=== PATIENT | male | born 1955 | race Caucasian/White ===

== ENCOUNTER → 2018-03-02 | Outpatient (CLI) | payer MEDICARE ==
--- NOTE | 2018-03-02 10:15 | MR ---
EXAMINATION TYPE: MR knee LT wo con DATE OF EXAM: 03/02/2018 COMPARISON: X-ray 02/06/2018 HISTORY: Pain in left knee TECHNIQUE: Multiplanar, multisequence imaging of the left knee is performed without IV contrast. FINDINGS: MEDIAL MENISCUS: No diagnostic evidence of tear. Intrasubstance signal suggestive of myxoid degenerat ion. LATERAL MENISCUS: There is globular signal posterior horn the lateral meniscus, however, along the pe riphery there does appear to be articular extension suggestive of a complex tear. CRUCIATE LIGAMENTS: The anterior and posterior cruciate ligaments are intact and unremarkable. COLLATERAL LIGAMENTS: There is fluid surrounding the lateral collateral ligament suggestive of a spra in. Soft tissue edema noted adjacent. Medial collateral ligament intact. EXTENSOR MECHANISM: Visualized quadriceps and patellar tendons are intact. Fibrillation and grade II chondromalacia of the patellar cartilage. EFFUSION: No significant suprapatellar joint effusion. POPLITEAL CYST: No popliteal/adhikari cyst. TRICOMPARTMENT SPACES: There is narrowing of the medial compartment of the knee joint compatible with mild osteoarthritis. BONE MARROW SIGNAL: No focal abnormal marrow signal is appreciated. IMPRESSION: 1. Complex tear involving the lateral meniscus with evidence of LCL sprain but no through thickness t ear. 2. Mild osteoarthritis 3. Fibrillation and grade II chondromalacia patellar cartilage.
== END | disposition home or self-care (01) ==
LOC: RADMRIMAIN 09:26
PROVIDERS: ATTEND Orthopaedic Surgery
DX: S83.272A Complex tear of lateral meniscus, current injury, left knee, initial encounter (principal); S83.422A Sprain of lateral collateral ligament of left knee, initial encounter; M17.12 Unilateral primary osteoarthritis, left knee; M22.42 Chondromalacia patellae, left knee

== ENCOUNTER → 2022-04-01 | Outpatient (CLI) | payer MEDICARE ==
[2022-04-01 11:36] LABS: INR 0.9 (<1.2); Partial Thromboplastin Time 27.1 sec (22.0-30.0); Prothrombin Time 10.3 sec (9.0-12.0)
--- NOTE | 2022-04-01 12:34 | XR ---
EXAMINATION TYPE: XR chest 2V DATE OF EXAM: 04/01/2022 COMPARISON: 12/29/2013 INDICATION: Presurgical clearance TECHNIQUE: Frontal and lateral views of the chest are obtained. FINDINGS: The heart size is normal. The pulmonary vasculature is normal. The lungs are clear. IMPRESSION: 1. No acute pulmonary process.
[2022-04-01 17:47] LABS: Basophils # (A) 0.07 X 10*3/uL (0.00-0.10); Eosinophils # (A) 0.29 X 10*3/uL (0.04-0.35); Eosinophils % (A) 4.1 %; HGB 13.7 g/dL (13.0-17.0); Immature Grans, Automated 0.3 %; Lymphocytes # (A) 2.13 X 10*3/uL (0.90-5.00); Lymphocytes % (A) 30.2 %; MCH 30.6 pg (27.0-32.0); MCHC 32.6 g/dL (32.0-37.0); MCV 93.8 fL (80.0-97.0); Mean Platelet Volume 10.7 fL (9.5-12.2); Monocytes # (A) 0.66 X 10*3/uL (0.20-1.00); Monocytes % (A) 9.3 %; NRBC Per 100 WBC 0 /100 WBCS (0.0-0.0); Neutrophils # (A) 3.89 X 10*3/uL (1.80-7.70); Neutrophils % (A) 55.1 %; Platelet Count 325 X 10*3/uL (140-440); RBC 4.48 X 10*6/uL (4.40-5.60); RDW 12.9 % (11.5-14.5); WBC 7.06 X 10*3/uL (4.50-10.00)
[2022-04-01 17:51] LABS: African American GFR (CKD) 91.1 (60.0-200.0); Albumin 4.6 g/dL (3.8-4.9); Albumin/Globulin Ratio 1.7 (1.60-3.17); Anion Gap 11.1 mmol/L (10.00-18.00); BUN/Creat Ratio 13.7 Ratio (12.00-20.00); Blood Urea Nitrogen 13.7 mg/dL (9.0-27.0); Calcium 10.1 mg/dL (8.7-10.3); Carbon Dioxide 26.9 mmol/L (20.0-27.5); Globulin 2.7 g/dL (1.6-3.3); Non-African American GFR(CKD) 78.6 (60.0-200.0); Potassium 4.6 mmol/L (3.5-5.5); Total Bilirubin 0.2 mg/dL (0.30-1.20); Total Protein 7.3 g/dL (6.2-8.2)
[2022-04-01 17:54] LABS: Appearance,Urine Clear (Clear); Bilirubin,Urine Negative (Negative); Blood,Urine Negative (Negative); Color,Urine Yellow (Yellow); Ketones,Urine Negative (Negative); Nitrite,Urine Negative (Negative); Specific Gravity,Urine 1.021 (1.001-1.030)
== END | disposition home or self-care (01) ==
LOC: LABPAT 10:54
PROVIDERS: ATTEND Orthopaedic Surgery Orthopaedic Surgery of the Spine
DX: Z01.818 Encounter for other preprocedural examination (principal); M48.00 Spinal stenosis, site unspecified; K43.6 Other and unspecified ventral hernia with obstruction, without gangrene
CPT/HCPCS: 71046; 80053; 81003; 85025; 85610; 85730; 87070

== ENCOUNTER 2022-04-06 12:43 | Observation (INO) | payer MEDICARE ==
[~2022-04-06 12:43] MED LIST: DEXAMETHASONE SOD PHOSPHATE 4 MG/ML 1 ML VIAL IV ONE; LACTATED RINGERS 1,000 ML IV SCH; LIDOCAINE 1% (10MG/ML) FOR IV START INTRADERMA PRN; MIDAZOLAM 2 MG/2 ML VIAL IV PRN; ONDANSETRON 4 MG/2 ML VIAL IVP ONE; ceFAZolin 1,000 MG in SODIUM CHLORIDE 0.9% IRRIGATIO 1,000 ML IRRIGATION PRN
[2022-04-06] MEDS ORDERED: LACTATED RINGERS 1,000 ML IV ONE ×2 (13:04→17:00)
[2022-04-06] MEDS ORDERED: KETAMINE 10 MG/ML 20 ML VIAL ONE (14:33)
[2022-04-06] MEDS ORDERED: fentaNYL (PF) 50 MCG/ML 2 ML AMP ONE (14:33)
[2022-04-06] MEDS ORDERED: GLYCOPYRROLATE 0.2 MG/ML 2 ML VIAL ONE (14:33)
[2022-04-06] MEDS ORDERED: SUCCINYLCHOLINE CHLORIDE 200 MG/10 ML VIAL IV ONE (14:33)
[2022-04-06] MEDS ORDERED: LIDOCAINE 2% INJ 20 MG/ML (2 ML VIAL) ONE (14:33)
[2022-04-06] MEDS ORDERED: PROPOFOL 10 MG/ML 20 ML VIAL IV ONE (14:33)
[2022-04-06] MEDS ORDERED: NEOSTIGMINE 1 MG/ML 10 ML VIAL ONE (14:33)
[2022-04-06] MEDS ORDERED: MIDAZOLAM 2 MG/2 ML VIAL ONE (14:33)
[2022-04-06] MEDS ORDERED: ROCURONIUM 10 MG/ML (5 ML VIAL) IV ONE (14:33)
[2022-04-06] MEDS ORDERED: HYDROmorphone (PF) 1 MG/ML ONE (14:33)
[2022-04-06] MEDS ORDERED: LIDOCAINE 2%-EPI 1:100,000 20 ML VIAL SQ ONE (15:11)
[2022-04-06] MEDS ORDERED: BUPIVACAINE (PF) 0.25% 30 ML VIAL SQ ONE (15:11)
[2022-04-06] MEDS ORDERED: GELATIN SPONGE,ABSORB (LARGE) 1 EACH SPONGE TOPICAL ONE (15:15)
[2022-04-06] MEDS ORDERED: THROMBIN (BOVINE) 5,000 UNIT VIAL TOPICAL ONE (15:16)
[2022-04-06] MEDS ORDERED: BENZOCAINE/MENTHOL LOZENG 1 EACH LOZENGE MUCOUS MEM PRN (18:08)
[2022-04-06] MEDS ORDERED: HYDROmorphone 1 MG/ML 1 ML SYRINGE IVP PRN (18:08)
[2022-04-06] MEDS ORDERED: ONDANSETRON 4 MG/2 ML VIAL IVP PRN (18:08)
[2022-04-06] MEDS ORDERED: SENNOSIDES-DOCUSATE SODIUM 1 EACH TAB PO PRN (18:08)
[2022-04-06] MEDS ORDERED: CYCLOBENZAPRINE 10 MG TAB PO PRN (18:08)
--- NOTE | 2022-04-06 18:21 | P.OP ---
Date of Procedure: 04/06/22 Preoperative Diagnosis: Severe spinal stenosis L3 4, herniated nucleus pulposis L3 4, retrolisthesis L3 4, lower extremity radiculopathy, lower extremity weakness, adjacent level degeneration L3 4 with prior fusion L4 to S1, retained hardware L4-S1 Postoperative Diagnosis: Same with findings of solid fusion L4 5 L5-S1 Anesthesia: GETA Pathology: none sent Condition: stable Disposition: PACU Description of Procedure: BRIEF OPERATIVE NOTE Preoperative Diagnosis:Severe spinal stenosis L3 4, herniated nucleus pulposis L3 4, retrolisthesis L3 4, lower extremity radiculopathy, lower extremity weakness, adjacent level degeneration L3 4 with prior fusion L4 to S1, retained hardware L4-S1 Postoperative Diagnosis: Same with findings of solid fusion L4 5 L5-S1 Procedure: Removal of deep hardware L4 Exploration of fusion L4 5 L5-S1 the findings of solid fusion Laminectomy and decompression L3 4 Posterior lateral decompression and fusion L3 4 for extension of fusion from L4 to S1 Transforaminal lumbar interbody fusion for a 360 fusion L3 4 Discectomy for decompression L3 4 Placement of interbody graft L3 4 Local autogenous bone grafting Use of CT navigation system intraoperatively for placement of hardware at L3 Aspiration of bone marrow aspirate from L3 on the right Use of Cell Saver Use of bone graft extenders Use of neuro monitoring Surgeon: Dr. Martin Machinist Mechanic: Juancho Carroll is present throughout the entire the case persistence during positioning, dissection, exposure, visualization, and all crucial elements of the case as well as closure. Anesthesia: General anesthesia per Dr. Dr. Pitts Estimated blood loss: Approximately 300 mL Complications: None apparent Components implanted: K2M [place] pedicle screw system with use of 4 screws 2 of them measuring 6.5 mm diameter and 2 of them measuring 7.5 mm diameter with one florencia and one 7 mm [place] cage with bone graft substitute to supplemental local autogenous bone graft and bone marrow aspirate Disposition: To recovery room in good stable condition. OPERATIVE INDICATIONS The patient has been having severe issues in his back and his lower extremity is over the past 4 months. He had a history of lumbar issues almost 9 years ago and underwent prior surgery in the past with a compression and fusion L4 5 and L5-S1. He had done very well with this and was very happy with his result. He did well until approximately 4 months ago where he started having significant increase in pain and had an injury. He was having worsening problems at his low back despite aggressive conservative care with home exercise program anti- inflammatory medications therapy and relative rest. Patient was found have advanced disc degeneration at the adjacent level of L3 4 with new disc herniation at L3 4 causing severe stenosis which correlated well with his low back and lower extremity symptoms. Patient was not having any benefit despite aggressive conservative treatment. The patient has had severe issues in their lower back and lower extremities. The patient has been through conservative treatment. We discussed various treatment options including surgery, and the patient wishes to proceed with surgery We discussed the risk, patient's alternatives and benefits of surgery including but not limited to, risk of bleeding risk of infection, risk of need for further surgery, risk of decreased, loss of motion, muscle function, malunion nonunion, hardware failure, nerve damage, paralysis, heart attack, blindness and . OPERATIVE SUMMARY After discussing all the risks, patient alternatives and benefits at length, the patient elected to proceed with surgical intervention, signed informed consent, and presented for their procedure. The patient was seen and examined in the preoperative holding area and the surgical site was marked. The patient was given antibiotics and brought to the operating room. The patient was sedated and intubated by anesthesia in standard fashion. The patient was positioned on to the operating room table in a prone position on the appropriate frame which was well-padded and well molded. We were careful to pad any bony prominences and pressure points. We were careful to maintain the patient's cervical spine and good neutral alignment and position throughout. The patient was prepped and draped in a normal standard fashion. An appropriate timeout and keystone protocol performed. We were able to proceed with the surgery. The local wound area was infiltrated with local anesthetic. An incision was made at the midline longitudinally over the appropriate levels. Dissection was taken down subcutaneously to the level of the fascia which was split midline. Dissection was taken over the lamina bilaterally over the facet joints and to the transverse processes and L4. I was able to identify the hardware at L4-L5 and S1. Note was made of significant bony formation around the hardware at each of these levels. It was essentially encased in bone at L4- L5 and S1. Intraoperative x-ray was taken which showed a marker at the appropriate level. At L3 4 With the appropriate level established I then exposed some of the hardware in order to place a secure tracking guide for a CT-guided placement of the pedicle screws at L3. The tracking and was placed to the screw head at L4 it was checked and found to be secure. We draped appropriately and then brought in the eczema CT guidance system to do a full spin which gave us excellent imaging. We're able to [address] the screw holes with Jamshidi needle wires and screws at L3 bilaterally and excellent alignment and position with uses of CT navigation intraoperatively. There checked and found to have no evidence of stimulation at 30 mA. I felt that we can do well with removing just the L4 screws and cutting the rods bilaterally. This would save time on the procedure and saved blood loss as well as he would require significant dissection and bony removal to expose the screws at L5 and S1 for further removal. I chose to cut the rods just above L5 screw heads with a metal cutting bur. Using near constant irrigation and suction as able cut the rods bilaterally. With the appropriate level positively confirmed, we were able to proceed with placement of the pedicle holes and screws. The patient had all their twitches back. The wound was copiously irrigated and suctioned dry as had been done periodically throughout the case. After the rods were removed from L4 they were checked and found to be intact appropriate early. There is no evidence of any motion at L4 5 and no evidence of motion at L5-S1. As able to expose the screw heads fully at L4 and remove the screws bilaterally from L4 there checked and found to be in total. The meyer palpated and found have good for laguerre and a good base. I was able to use these holes to place the appropriate size screw and good alignment and good position with good bony purchase. I used a 7.5 mm screw with the same holes at L4 bilaterally. When the screws were inserted there were stimulated, and found to have no stimulation at 20 mA. I was able to turn my attention to the decompression decompression was performed with a combination of rongeurs, curettes, Kerrison rongeurs and a ball-tip feeler. I exposed further on the right side. All of the bone that was removed was stripped and morcellized for use as autogenous bone graft later in the case. I was able to obtain good central decompression as well as wide bilateral foraminal decompression. There is no evidence of dural tear or leak. Good hemostasis was maintained. The wound was irrigated and suctioned dry. I performed a complete facetectomy at the appropriate level on the most symptomatic side on the right where there was large disc herniation on the MRI. All bone that was removed was saved for local autogenous bone grafting. I was able to gain access to the disc space at the appropriate level/levels. Good hemostasis was maintained. I was able to protect the neurologic structures. Note was made a very large disc herniation at L3 4 with extruded fragments which was able to be remedied with the decompression and discectomy. A discectomy was performed. This provided further decompression. I was also able to perform complete discectomy and endplate preparation with a combination of pituitary curettes, rasps and scrapers. With the interbody space prepared, I was able to do appropriate sizing. The appropriate size cage was chosen. The wound was irrigated and suctioned dry. The interbody space was packed with local autogenous bone graft and a small portion of bone graft substitute, as was the cage itself. Protecting the soft tissue structures, I was able place the cage in good alignment and good position with good fit and fill. There is no evidence of extrusion of the graft material nor protrusion of the interbody device. The wound was irrigated and suctioned dry. With the hardware intact, intraoperative x-ray was again taken which showed good alignment and position of the hardware at the appropriate levels at L3 4 above the prior fusion at L45 and L5-S1. We were then able to measure, contour and place the rods and appropriate hardware bilaterally. I was able to place capcrews, tighten them down, and torque them off appropriately. With this intact I was able to place the local autogenous bone graft with additional bone graft enhancer as necessary into the posterior lateral gutters bilaterally. With the bone graft intact, a stable construct, and good decompression at the appropriate levels, we were able to proceed with closure. Good hemostasis was maintained. There is no evidence of dural tear or leak. The fascia was closed for a watertight closure. The subcutaneous tissue was closed over a superficial drain. The subcuticular tissue was closed with absorbable suture. The wound was cleaned and dried and dressed with the appropriate dressing. The drapes were broken down. The patient was gently rolled back onto their hospital bed being careful to maintain their cervical spine and good neutral alignment and position. They were woken up by anesthesia, extubated, and brought to the recovery room in good stable condition. The patient will be admitted to the hospital for appropriate postoperative care, medical management and monitoring. We will continue to follow them closely about the postoperative course.
[2022-04-06] MEDS ORDERED: LABETALOL SYRINGE 5 MG/ML IVP ONE (19:03)
[2022-04-06] MEDS: HYDROmorphone 0.5 MG/0.5 ML SYRINGE IVP PRN ×3 (19:20→23:49)
[2022-04-06] MEDS ORDERED: ONDANSETRON 4 MG/2 ML VIAL IVP ONE (19:50)
--- NOTE | 2022-04-06 20:21 | FL ---
Intraoperative/procedural fluoroscopic services were provided. Total fluoroscopy time is 19 seconds w ith a total of 2 submitted images to PACS. Please see the operative/procedural note for further detai ls.
[2022-04-07] MEDS: HYDROmorphone 0.5 MG/0.5 ML SYRINGE IVP PRN (05:59)
[2022-04-07] MEDS: SODIUM CHLORIDE 0.9% 1,000 ML IV SCH ×2 (06:00→08:42)
[2022-04-07] MEDS: HYDROcodone/APAP 5-325MG 1 EACH TAB PO PRN ×3 (09:00→21:32)
[2022-04-07] MEDS: lisinopriL 20 MG TAB PO SCH (09:01)
[2022-04-07] MEDS: SENNOSIDES-DOCUSATE SODIUM 1 EACH TAB PO SCH (09:02)
[2022-04-07] MEDS: CITALOPRAM HYDROBROMIDE 20 MG TAB PO SCH (09:03)
[2022-04-07] MEDS: ATORVASTATIN 10 MG TAB PO SCH (09:04)
[2022-04-07] MEDS: amLODIPine 5 MG TAB PO SCH (09:04)
--- NOTE | 2022-04-07 09:04 | P.PN ---
Progress Note - Text Progress Note Date: 04/07/22 Postoperative day #1 Patient is seen and examined today at bedside. The patient has some pain around the surgical site as expected. Pain is being controlled with medication.He says that the spastic pain and burning pain in his legs has significantly improved. He has been up and was able to void. He has had small amounts of food. He denies any nausea or vomiting. Physical Exam Afebrile with stable vital signs Abdomen is soft nontender. Chest has good excursion deep and space expiration The incision site is clean . There is some serosanguineous drainage at the dressing but appears to be stable. I removed the drain and there is no significant fluid collection. No erythema there is no purulence. Extremities have not had neurologic change from prior to surgery.He has sustained dorsal flexion plantar flexion and EHL intact Calves and thighs were soft nontender without evidence of DVT. Assessment/Plan Postoperative day #1 status post decompression fusion L3 4 with removal of hardware from L4 and extension of fusion for his severe spinal stenosis with disc herniation lower extremity radiculopathy and weakness Patient is progressing as expected from the surgery. His back is sore but he is very happy with how his legs are feeling and he has had significant improvement in his lower extremities the scar. I discontinued his drain as he seemed to be draining around the site to some degreeThe drainage appears to be stable and without any evidence of infection. I reinforce the dressing and we will continue to monitor this closely. We will continue to increase the patient's mobilization with therapy. We will continue pain control with oral or IV medications. We'll continue to follow patient closely.Hopefully he'll be okay for discharge home in 1 or 2 days.
[2022-04-07 09:29] LABS: Basophils # (A) 0.03 X 10*3/uL (0.00-0.10); Basophils % (A) 0.2 %; Eosinophils # (A) 0 X 10*3/uL (0.04-0.35); Eosinophils % (A) 0 %; HCT 36.6 % (39.6-50.0); HGB 12.4 g/dL (13.0-17.0); Immature Grans, Automated 0.5 %; Lymphocytes # (A) 1.87 X 10*3/uL (0.90-5.00); Lymphocytes % (A) 9.9 %; MCH 31.1 pg (27.0-32.0); MCHC 33.9 g/dL (32.0-37.0); MCV 91.7 fL (80.0-97.0); Mean Platelet Volume 11.7 fL (9.5-12.2); Monocytes % (A) 7.9 %; NRBC Per 100 WBC 0 /100 WBCS (0.0-0.0); Neutrophils # (A) 15.39 X 10*3/uL (1.80-7.70); Neutrophils % (A) 81.5 %; Platelet Count 309 X 10*3/uL (140-440); RBC 3.99 X 10*6/uL (4.40-5.60); RDW 12.7 % (11.5-14.5); WBC 18.89 X 10*3/uL (4.50-10.00)
[2022-04-07 09:46] LABS: African American GFR (CKD) 91.1 (60.0-200.0); Anion Gap 12.7 mmol/L (10.00-18.00); BUN/Creat Ratio 11.3 Ratio (12.00-20.00); Blood Urea Nitrogen 11.3 mg/dL (9.0-27.0); Calcium 9.6 mg/dL (8.7-10.3); Carbon Dioxide 21.3 mmol/L (20.0-27.5); Non-African American GFR(CKD) 78.6 (60.0-200.0); Potassium 4.2 mmol/L (3.5-5.5)
--- NOTE | 2022-04-07 14:20 | P.CONS ---
History of Present Illness - Reason for Consult Leukocytosis, back pain - History of Present Illness Patient is a pleasant 66-year-old male status post lumbar laminectomy surgery, patient is still having the significant pain. Patient does have history of hypertension blood pressure is bit more elevated secondary to pain. Patient did not pass gas did not move his bowel yet. REVIEW OF SYSTEMS: CONSTITUTIONAL: No fever, no malaise, no fatigue. HEENT: No recent visual problems or hearing problems. Denied any sore throat. CARDIOVASCULAR: No chest pain, orthopnea, PND, no palpitations, no syncope. PULMONARY: No shortness of breath, no cough, no hemoptysis. GASTROINTESTINAL: No diarrhea, no nausea, no vomiting, no abdominal pain. NEUROLOGICAL: No headaches, no weakness, no numbness. HEMATOLOGICAL: Denies any bleeding or petechiae. GENITOURINARY: Denies any burning micturition, frequency, or urgency. MUSCULOSKELETAL/RHEUMATOLOGICAL: Back pain ENDOCRINE: Denies any polyuria or polydipsia. The rest of the 14-point review of systems is negative. PHYSICAL EXAMINATION: GENERAL: The patient is alert and oriented x3, not in any acute distress. Well developed, well nourished. HEENT: Pupils are round and equally reacting to light. EOMI. No scleral icterus. No conjunctival pallor. Normocephalic, atraumatic. No pharyngeal erythema. No thyromegaly. CARDIOVASCULAR: S1 and S2 present. No murmurs, rubs, or gallops. PULMONARY: Chest is clear to auscultation, no wheezing or crackles. ABDOMEN: Soft, nontender, nondistended, normoactive bowel sounds. No palpable organomegaly. MUSCULOSKELETAL: Deferred to orthopedic surgery EXTREMITIES: No cyanosis, clubbing, or pedal edema. NEUROLOGICAL: Gross neurological examination did not reveal any focal deficits. SKIN: No rashes. Assessment and plan -Leukocytosis without any evidence of infection reactive secondary to surgery no further intervention at this time -Hypertension with elevated uncontrolled blood pressures secondary to back pain patient will be resumed on home medications and continue to monitor with pain control -Hyperlipidemia -Lumbar laminectomy postoperative day one her pain management as per primary service patient does have bowel sounds were did not move his bowels yet DVT prophylaxis: As per primary service Past Medical History Past Medical History: Hyperlipidemia, Hypertension, Osteoarthritis (OA) Additional Past Medical History / Comment(s): kidney stones, back pain History of Any Multi-Drug Resistant Organisms: None Reported Past Surgical History: Back Surgery, Hernia Repair, Orthopedic Surgery Additional Past Surgical History / Comment(s): back fusion July 2013, left ankle ORIF, colonoscopy, EGD ,. lft knee arthroscopy, Past Anesthesia/Blood Transfusion Reactions: Postoperative Nausea & Vomiting (PONV) Past Psychological History: No Psychological Hx Reported Smoking Status: Former smoker Past Alcohol Use History: None Reported Additional Past Alcohol Use History / Comment(s): cigar rarely Past Drug Use History: None Reported, Marijuana Additional Drug Use History / Comment(s): pt to refrain x 24 hours prior to surgery - Past Family History Brother(s) Family Medical History: Deep Vein Thrombosis (DVT) Medications and Allergies Home Medications Medication Instructions Recorded Confirmed Type Citalopram Hydrobromide 20 mg PO DAILY 04/10/18 04/01/22 History [Citalopram HBr] Simvastatin [Zocor] 20 mg PO DAILY 04/10/18 04/01/22 History Hydrocodone/Acetaminophen [[place] 1 each PO Q8HR PRN 04/01/22 04/01/22 History 5-325] amLODIPine [Norvasc] 5 mg PO DAILY 04/01/22 04/01/22 History lisinopriL 40 mg PO DAILY 04/01/22 04/01/22 History Allergies Allergy/AdvReac Type Severity Reaction Status Date / Time No Known Allergies Allergy Verified 04/01/22 12:20 Physical Exam Vitals: Vital Signs Temp Pulse Pulse Resp BP BP Pulse Ox 04/07/22 08:00 98.4 F 90 17 171/88 97 04/07/22 02:00 98.2 F 92 15 157/84 97 04/06/22 23:45 102 H 138/84 04/06/22 23:30 90 150/86 04/06/22 23:15 88 154/88 04/06/22 23:00 87 151/91 04/06/22 22:45 87 155/92 04/06/22 22:30 88 160/92 04/06/22 22:15 87 152/91 04/06/22 22:00 90 160/94 04/06/22 21:45 82 154/94 04/06/22 21:30 82 165/93 04/06/22 21:15 85 154/93 94 L 04/06/22 21:14 98.8 F 89 126/74 95 04/06/22 21:00 86 157/93 94 L 04/06/22 20:45 87 156/90 04/06/22 20:30 104 H 16 158/77 100 04/06/22 19:45 84 16 154/88 96 04/06/22 19:30 84 16 158/90 98 04/06/22 19:15 84 16 157/87 96 04/06/22 19:00 107 H 18 181/88 95 04/06/22 18:45 107 H 18 189/91 95 04/06/22 18:30 104 H 16 165/85 100 Intake and Output 04/06/22 04/07/22 04/07/22 22:59 06:59 14:59 Intake Total 850 Output Total 500 525 Balance 350 -525 Intake: IV 850 Output: Urine 200 525 Uretheral (Kohler) 525 Estimated Blood Loss 300 Other: Voiding Method Indwelling Catheter Toilet # Voids 1 Weight 74.843 kg Results CBC & Chem 7: 04/07/22 05:59 04/07/22 05:59 Labs: Abnormal Lab Results - Last 24 Hours (Table) 04/07/22 04/07/22 Range/Units 05:59 05:59 WBC 18.89 H (4.50-10.00) X 10*3/uL RBC 3.99 L (4.40-5.60) X 10*6/uL Hgb 12.4 L (13.0-17.0) g/dL Hct 36.6 L (39.6-50.0) % Immature Gran # 0.10 H (0.00-0.04) X 10*3/uL Neutrophils # 15.39 H (1.80-7.70) X 10*3/uL Monocytes # 1.50 H (0.20-1.00) X 10*3/uL Eosinophils # 0 L (0.04-0.35) X 10*3/uL BUN/Creatinine Ratio 11.30 L (12.00-20.00) Ratio Glucose 135 H (70-110) mg/dL
[2022-04-08] MEDS: SODIUM CHLORIDE 0.9% 1,000 ML IV SCH ×2 (00:36→11:13)
[2022-04-08] MEDS: HYDROcodone/APAP 5-325MG 1 EACH TAB PO PRN ×2 (02:20→08:57)
[2022-04-08 08:29] VITALS: BP 157/80; PULSE 104; RESP 17; TEMP 98
[2022-04-08] MEDS: amLODIPine 5 MG TAB PO SCH (08:56)
[2022-04-08] MEDS: ATORVASTATIN 10 MG TAB PO SCH (08:57)
[2022-04-08] MEDS: lisinopriL 20 MG TAB PO SCH (08:57)
[2022-04-08] MEDS: SENNOSIDES-DOCUSATE SODIUM 1 EACH TAB PO SCH (08:57)
[2022-04-08] MEDS: CITALOPRAM HYDROBROMIDE 20 MG TAB PO SCH (08:57)
--- NOTE | 2022-04-08 08:59 | P.DS ---
Providers Date of admission: 04/07/22 07:44 Expected date of discharge: 04/08/22 Attending physician: Jones Martin Consults: 04/06/22 18:08 Consult Physician Routine Consulting Provider: Ernesto Velasquez Consult Reason/Comments: Medical management Do you want consulting provider notified?: Yes Primary care physician: Lorrie Trejo - Discharge Diagnosis(es) (1) Status post lumbar spinal fusion Current Visit: Yes Status: Acute (2) History of lumbar fusion Current Visit: Yes Status: Acute (3) Lumbar stenosis Current Visit: Yes Status: Acute (4) Lumbar back pain with radiculopathy affecting lower extremity Current Visit: Yes Status: Acute (5) Lumbar herniated disc Current Visit: Yes Status: Acute (6) Hyperlipidemia Current Visit: Yes Status: Acute (7) Hypertension Current Visit: Yes Status: Acute Hospital Course: This is a pleasant 66-year-old male who presented with L3-4 adjacent level severe spinal stenosis, herniated nucleus pulposis, and retrolisthesis with low back pain, lower extremity radiculopathy, lower extremity weakness, and history of previous fusion L4-S1 with retained hardware who who failed outpatient conservative therapy. He was admitted for an L3-4 posterior lateral decompression and fusion with transforaminal lumbar interbody fusion with r emoval of hardware at L4 and extension of previous fusion. Patient is doing quite well postoperatively. His lower extremity radiculopathy symptoms have significantly improved. He is able to ambulate to the restroom independently without the assistance of a walker. He does have a walker at home. His pain is well-controlled. He is eating and voiding without difficulty. He feels he is ready for discharge today. The patient tolerated the procedure well and did well postoperatively. Condition on day of discharge stable. Patient will be discharged home. Patient was cleared preoperatively for surgery by Dr. Trejo. Patient currently denies any nausea, vomiting, fever, or chills. Dressing has been changed this morning. Patient may shower Tegaderm dressing intact. Patient may remove Tegaderm dressing in 3 days and shower without a dressing at that time. Patient should refrain from driving until at least after their first follow-up appointment in the office. Patient should avoid excessive bending, lifting, and twisting; no lifting greater than 10 pounds. MAPS has been reviewed today, 04/08/2022. An "Opiod Start Talking" Form has been signed and placed in the patient's chart. A prescription has been written for [place] 5 mg/325 mg, take 1 tab every 4 hours as needed for acute pain, dispense #42. Patient is also given a prescription for cyclobenzaprine 10 mg 1 tab 3 times a day as needed for muscle spasm, dispensed #60 and Senokot-S 1 tab twice a day as needed for constipation, dispensed #60. Patient's other medical diagnoses include hyperlipidemia ans hypertension. Physical Exam on day of discharge: Patient is awake, alert, and oriented 3 Vital signs stable Good chest excursion with deep inspiration and expiration Abdomen soft nontender No signs or symptoms of DVT; no calf pain Extensor hallucis longus, plantarflexion, and dorsiflexion positive sustained bilateral lower extremities Patient is able to ambulate and change positions well independently without difficulty Dressing is removed and reapplied during physical examination; nonstick Telfa and Tegaderm applied over the surgical incision site Incision is clean, dry, and intact; no erythema, purulence, or signs of infection Procedures: L3-4 posterior lateral decompression and fusion with transforaminal lumbar interbody fusion with removal of hardware at L4 and extension of previous fusion Patient Condition at Discharge: Stable Plan - Discharge Summary Discharge Rx Participant: No New Discharge Prescriptions: New HYDROcodone/APAP 5-325MG [[place] 5] 1 each PO Q4HR PRN #42 tab PRN Reason: Pain Cyclobenzaprine [Flexeril] 10 mg PO TID PRN #60 tab PRN Reason: Muscle Spasm Sennosides-Docusate Sodium [Senokot-S] 1 tab PO BID PRN #60 tablet PRN Reason: Constipation No Action Simvastatin [Zocor] 20 mg PO DAILY Citalopram Hydrobromide [Citalopram HBr] 20 mg PO DAILY Hydrocodone/Acetaminophen [[place] 5-325] 1 each PO Q8HR PRN PRN Reason: Pain amLODIPine [Norvasc] 5 mg PO DAILY lisinopriL 40 mg PO DAILY Discharge Medication List Citalopram Hydrobromide [Citalopram HBr] 20 mg PO DAILY 04/10/18 [History] Simvastatin [Zocor] 20 mg PO DAILY 04/10/18 [History] Hydrocodone/Acetaminophen [[place] 5-325] 1 each PO Q8HR PRN 04/01/22 [History] amLODIPine [Norvasc] 5 mg PO DAILY 04/01/22 [History] lisinopriL 40 mg PO DAILY 04/01/22 [History] Cyclobenzaprine [Flexeril] 10 mg PO TID PRN #60 tab 04/08/22 [Rx] HYDROcodone/APAP 5-325MG [[place] 5] 1 each PO Q4HR PRN #42 tab 04/08/22 [Rx] Sennosides-Docusate Sodium [Senokot-S] 1 tab PO BID PRN #60 tablet 04/08/22 [Rx] Follow up Appointment(s)/Referral(s): Jones Martin DO [Doctor of Osteopathic Medicine] - 04/19/22 3:15 pm Lorrie Trejo DO [Primary Care Provider] - 1 Week Activity/Diet/Wound Care/Special Instructions: Keep site clean. May shower with waterproof Tegaderm intact. Do not soak in a tub. After 72 hours postoperatively, patient May remove dressing and then may shower with area uncovered. Leave glue intact and allow it to fray off on its own. May ambulate as tolerated. Avoid heavy or rigorous activity. No repetitive bending twisting or lifting. No overhead work. Discharge Disposition: HOME SELF-CARE
--- NOTE | 2022-04-08 22:23 | P.PN ---
Subjective Progress Note Date: 04/08/22 Patient is a pleasant 66-year-old male status post lumbar laminectomy surgery, patient is still having the significant pain. Patient does have history of hypertension blood pressure is bit more elevated secondary to pain. Patient did not pass gas did not move his bowel yet. 04/08/2022 Patient is evaluated today on medical floor. He is postoperative day #2 lumbar laminectomy. He has been cleared by orthopedics for discharge. Currently rating his pain 3/10 and states well controlled with oral pain medication. He has had a bowel movement and is passing gas. He has been resumed on all home medication. Cleared medically for discharge home. Review of Systems Constitutional: Denied any fatigue denied any fever. Cardio vascular: denied any chest pain, palpitations Gastrointestinal: denied any nausea, vomiting, diarrhea Pulmonary: Denied any shortness of breath cough Neurologic denied any new focal deficits All inpatient medications were reviewed and appropriate changes in these medications as dictated in the interval history and assessment and plan. PHYSICAL EXAMINATION: GENERAL: The patient is alert and oriented x3, not in any acute distress. Well developed, well nourished. HEENT: Pupils are round and equally reacting to light. EOMI. No scleral icterus. No conjunctival pallor. Normocephalic, atraumatic. No pharyngeal erythema. No thyromegaly. CARDIOVASCULAR: S1 and S2 present. No murmurs, rubs, or gallops. PULMONARY: Chest is clear to auscultation, no wheezing or crackles. ABDOMEN: Soft, nontender, nondistended, normoactive bowel sounds. No palpable organomegaly. MUSCULOSKELETAL: Deferred to orthopedic surgery EXTREMITIES: No cyanosis, clubbing, or pedal edema. NEUROLOGICAL: Gross neurological examination did not reveal any focal deficits. SKIN: No rashes. Assessment and plan -Leukocytosis without any evidence of infection reactive secondary to surgery no further intervention at this time -Hypertension with elevated uncontrolled blood pressures secondary to back pain patient will be resumed on home medications and continue to monitor with pain control, blood pressure improving -Hyperlipidemia -Lumbar laminectomy postoperative day 2 GI prophylaxis: DVT prophylaxis: As per primary service Full Code Plan patient is cleared medically for discharge, thank you for this consultation. The impression and plan of care has been dictated by Vivi Clark, Nurse Practitioner as directed. Dr. Chris MD I have performed a history and physical examination and medical decision making of this patient, discussed the same with the dictator, and agree with the dictators assessment and plan as written, documented as a scribe. Based on total visit time, I have performed more than 50% of this visit. Objective - Vital Signs Vital signs: Vital Signs Temp 98.0 F 04/08/22 08:00 Pulse 104 H 04/08/22 08:00 Resp 17 04/08/22 08:00 BP 157/80 04/08/22 08:00 Pulse Ox 98 04/08/22 08:00 FiO2 Intake & Output 04/07/22 04/08/22 04/08/22 18:59 06:59 18:59 Intake Total 1500 Balance 1500 Intake: Intake, IV Titration 1500 Amount Sodium Chloride 0.9% 1, 1400 000 ml @ 75 mls/hr IV . [id number] [facility] Rx#:[id number] ceFAZolin 2 gm In Sodium 100 Chloride 0.9% 50 ml @ 100 mls/hr IVPB Q8H [facility] Rx#: [id number] Other: Voiding Method Toilet # Voids 2 - Labs CBC & Chem 7: 04/07/22 05:59 04/07/22 05:59 Assessment and Plan Time with Patient: Less than 30
== END 2022-04-08 11:55 | disposition home or self-care (01) ==
LOC: OR 12:43 → 4SSUR 18:17 → OR 04-07 07:44 → 4SSUR 04-07 07:44
PROVIDERS: ADMIT Orthopaedic Surgery Orthopaedic Surgery of the Spine; ATTEND Orthopaedic Surgery Orthopaedic Surgery of the Spine
DX: M51.27 Other intervertebral disc displacement, lumbosacral region (principal); M48.061 Spinal stenosis, lumbar region without neurogenic claudication; M51.16 Intervertebral disc disorders with radiculopathy, lumbar region; I10 Essential (primary) hypertension; F12.90 Cannabis use, unspecified, uncomplicated; D72.829 Elevated white blood cell count, unspecified; E78.5 Hyperlipidemia, unspecified; Z87.442 Personal history of urinary calculi; Z87.891 Personal history of nicotine dependence; Z79.899 Other long term (current) drug therapy
CPT/HCPCS: 96360; 96361; 97161; 86900; 86901; 80048; 85025; 86850; 72100; 20680; 22612; 22842; 20930; 20936; G0378 ×2; C1713; C1762; J2250; J0330; J2710; J0690 ×3; J2405; J3010; J1170 ×3; J2704; J2001